=== PATIENT | male | born 1955 | race Caucasian/White ===

== ENCOUNTER 2025-05-06 16:19 | Emergency (ER) | payer MEDICARE, MEDICAID, SELFPAY ==
[2025-05-06] VITALS (21 sets, daily range): BP systolic 128–162; BP diastolic 70–109; PULSE 86–125; RESP 12–28; TEMP 36.4–36.8; O2SAT 92–100; BMI 27.7
--- NOTE | 2025-05-06 16:22 | EDS_ITS ---
HPI History of Present Illness Chief Complaint: Shortness of Breath PFSH PFSH Medical History no medical history Allergy/AdvReac Type Severity Reaction Status Date / Time No Known Allergies Allergy Verified 05/06/25 19:09 Family History no significant family his Surgical History no surgical history Social History Smoking Status: Current every day smoker tobacco type: cigarettes EXAM Physical Exam Const Vital Signs: 05/06/25 16:20 05/06/25 16:24 05/06/25 16:26 Temperature 97.6 F L 97.8 F Temperature Source Oral Oral Pulse Rate 114 H 125 H Respiratory Rate 25 H 28 H Respiratory Effort Labored Accessory Muscle Use Respiratory Depth Shallow Respiratory Pattern Tachypnea Blood Pressure 153/106 H 153/106 H Blood Pressure Mean 121 121 Pulse Ox 98 95 Oxygen Delivery Method Room Air Room Air Oxygen Flow Rate (L/min) Fraction of Inspired Oxygen (FIO2) 05/06/25 17:24 05/06/25 17:38 05/06/25 18:00 Temperature 98 F Temperature Source Axillary Pulse Rate 100 115 H 95 Respiratory Rate 22 H 23 H 26 H Respiratory Effort Respiratory Depth Respiratory Pattern Tachypnea Blood Pressure 128/70 H 162/101 H Blood Pressure Mean 89 121 Pulse Ox 100 98 94 Oxygen Delivery Method Bi-pap Oxygen Flow Rate (L/min) Fraction of Inspired Oxygen (FIO2) 35 05/06/25 18:50 05/06/25 19:08 05/06/25 20:00 Temperature Temperature Source Pulse Rate 113 H Respiratory Rate 22 H 24 H Respiratory Effort Respiratory Depth Respiratory Pattern Blood Pressure 146/107 H Blood Pressure Mean 120 Pulse Ox 95 92 96 Oxygen Delivery Method Nasal Cannula Nasal Cannula Oxygen Flow Rate (L/min) 3 3 Fraction of Inspired Oxygen (FIO2) 05/06/25 21:00 05/06/25 21:18 05/06/25 21:18 Temperature Temperature Source Pulse Rate 106 H 91 Respiratory Rate 22 H 17 Respiratory Effort Respiratory Depth Respiratory Pattern Normal Blood Pressure 150/109 H Blood Pressure Mean 122 Pulse Ox 96 96 96 Oxygen Delivery Method Nasal Cannula Bi-pap Oxygen Flow Rate (L/min) 3 Fraction of Inspired Oxygen (FIO2) 30 30 05/06/25 21:40 05/06/25 21:48 05/06/25 22:00 Temperature Temperature Source Pulse Rate 96 107 H Respiratory Rate 20 H 20 H Respiratory Effort Respiratory Depth Respiratory Pattern Blood Pressure 133/103 H 155/99 H Blood Pressure Mean 113 117 Pulse Ox 95 95 97 Oxygen Delivery Method Bi-pap Nasal Cannula Nasal Cannula Oxygen Flow Rate (L/min) 3 3 Fraction of Inspired Oxygen (FIO2) 05/06/25 22:14 05/06/25 22:28 05/06/25 22:44 Temperature 98.2 F 98.2 F 98.2 F Temperature Source Oral Oral Oral Pulse Rate 95 104 H 98 Respiratory Rate 20 H 20 H 20 H Respiratory Effort Respiratory Depth Respiratory Pattern Blood Pressure 155/99 H 140/106 H 143/88 H Blood Pressure Mean 117 117 106 Pulse Ox 96 98 97 Oxygen Delivery Method Nasal Cannula Nasal Cannula Nasal Cannula Oxygen Flow Rate (L/min) 3 3 3 Fraction of Inspired Oxygen (FIO2) 05/06/25 22:59 05/06/25 23:00 05/06/25 23:14 Temperature 98.2 F 98.2 F Temperature Source Oral Oral Pulse Rate 86 98 95 Respiratory Rate 20 H 20 H 20 H Respiratory Effort Respiratory Depth Respiratory Pattern Blood Pressure 143/88 H 140/88 H 141/84 H Blood Pressure Mean 106 105 103 Pulse Ox 97 97 96 Oxygen Delivery Method Nasal Cannula Nasal Cannula Nasal Cannula Oxygen Flow Rate (L/min) 3 3 2 Fraction of Inspired Oxygen (FIO2) 05/06/25 23:23 Temperature Temperature Source Pulse Rate Respiratory Rate Respiratory Effort Respiratory Depth Respiratory Pattern Blood Pressure Blood Pressure Mean Pulse Ox 95 Oxygen Delivery Method Nasal Cannula Oxygen Flow Rate (L/min) 2 Fraction of Inspired Oxygen (FIO2) MDM MDM MDM Narrative Medical decision making narrative: HISTORY OF PRESENT ILLNESS: Chief complaint: Shortness of breath 69-year-old male with no documented past medical history. States he does not see a doctor as he has broken bone presents with shortness of breath. States he has had shortness of breath for last 6 months but is worse over the last several days. Notes for the last week or so he has had decreased p.o. intake secondary to nausea, dry heaving and diffuse abdominal pain. States he drinks one 4 [place] (malt liquor) daily and has been doing this for years. His last drink was yesterday. He denies leg swelling. Denies focal weakness. Denies any falls. Denies any actual vomiting. States his last bowel movement was unknown. Denies any urinary complaints. He also notes occasional chest pain but denies chest pain at this time. He notes a cough. Denies fever or chills however. Notes his cough is dry nonproductive. The patient denies recent surgery in the last 4 weeks or immobilization in the last 3 days, denies previous diagnosis of DVT or PE, hemoptysis, unilateral leg swelling or malignancy with treatment the last 6 months or palliative. No estrogen use noted. Patient denies sudden onset of pain, no tearing sensation, no migratory symptoms, no new numbness, weakness or loss of sensation. Patient denies family history or personal history of Connective tissue disorders (Marfan's Syndrome, Meg Danlos etc). REVIEW OF SYSTEMS: Pertinent positives: Shortness of breath, abdominal pain, nausea, dry heaving Pertinent negatives: As per HPI PHYSICAL EXAM: Nursing triage notes reviewed, Vital signs reviewed Constitutional: please see mdm HENT: MMM, dry oral mucosa Eyes: Pupils equal round and reactive to light, Extraocular muscles intact Neck: No stridor, no JVD, full neck ROM Lungs: Diminished breath sounds R>L but no obvious wheezing or rales. There was mild conversational dyspnea and slight increased work of breathing but no obvious clay pigeon setter muscle use nasal flaring. Heart: Fast irregular rate, no murmurs gallops rubs. Intact pulses in all 4 extremities. Abdomen: Soft, there is no tenderness, rigidity, rebound or guarding, no obvious peritoneal signs, no palpable pulsatile abdominal masses, no auscultated abdominal bruit : No CVAT Extremities: No edema Neuro: No new focal neurological deficits, cranial nerves II through XII intact, 5/5 strength in all present extremities. Intact sensation to light touch in all present extremities, 2+ reflexes bilateral patella tendons. Skin: No rash or lesions noted MEDICAL DECISION MAKING: Chief Complaint: please see HPI External records reviewed: Reviewed prior cardiovascular testing: No cardiovascular testing noted in [facility] Factors affecting care: No known medical issues Social determinants of health: Tobacco abuse, alcohol abuse History obtained from others: EMS Consults: [facility] Dr. Mccullough [facility] Narrative: Patient was a poor historian did not provide reliable history. The patient was initially hypertensive with a blood pressure 153/106, tachycardic with a pulse of 114, tachypneic with respirate of 25, saturating 98% on room air. He was afebrile with a temperature of 97.6. Patient was slightly conversationally dyspneic. However his lungs were overall clear with no obvious wheezing rales or focal consolidation. I considered the following differential diagnosis: Arrhythmia, anemia, electrolyte disturbance, pneumonia, COPD exacerbation/asthma exacerbation, CHF, Pleural effusion, PE, viral illness, AAA, small bowel obstruction, abdominal perforation, appendicitis, pancreatitis, hepatobiliary pathology (acute cholecystitis), mesenteric ischemia, pathology (ie nephrolithiasis, pyelonephritis). Alcohol withdrawal I obtained a broad lab and imaging workup to further determine if the patient was suffering from a life-threatening etiology. Initially treated the patient with a small 500 cc bolus given his complaint of not eating and nausea, given 4 of IV Zofran as well as 2 mg IV morphine. ALL IMAGES (IF OBTAINED) HAVE BEEN PERSONALLY REVIEWED AND INTERPRETED BY MYSELF. EKG with an irregularly irregular rhythm, no discernible P waves, questionable A-fib, poor baseline, appears to be a normal axis, there is a prolonged QT interval at 519, there is no obvious STEMI Chest x-ray was read and reviewed personally myself shows complete whiteout of the right side of the patient's lungs. Will order CT scan to further investigate once his kidney function is known. Given continued tachypnea, Large pleural effusion and decreased lung capacity at start the patient on rescue BiPAP to decrease work of breathing CBC with no leukocytosis to suggest systemic inflammation, no anemia but elevated hemoglobin suggestive of hemoconcentration, noted mild thrombocytopenia VBG with no CO2 retention, no respiratory acidosis, no signs of metabolic acidosis either. Initial lactate elevated consistent with endorgan hypoperfusion possibly related to history of alcohol abuse and liver dysfunction versus infection. My clinical suspicion is this is the former as patient admits to drinking alcohol daily and his alcohol level here is 312 and his liver function tests are abnormal. This suggests a disrupted cortical D-dimer elevated consistent with increased clot breakdown concern for VTE cannot High-sensitivity troponin is negative, no evidence of myocardial ischemia LFTs elevated consistent with liver dysfunction This may be due to alcohol versus other obstructive etiology. Will await CT scan of the abdomen pelvis BNP within normal limits no sign of heart failure Lipase is wnl indicating no pancreatic inflammation. BMP with no significant electrolyte abnormalities, no sign of metabolic acidosis but there is sign of endorgan perfusion elevated anion gap likely related to lactate elevation, no OSCAR CTA of the chest shows large pleural effusion no obvious mass or pneumonia or PE CT scan of the abdomen pelvis shows duodenitis, peptic ulcer disease but no obvious perforation or obstruction Briefly discussed with her hospitalist here [facility] who noted we do not have IR pulmonology recommended transfer to higher level of care. Will try [facility]. Discussed with [facility] Nurse at 1900 and the transfer center. She we will get a hold of their hospitalist and call me back Discussed with hospitalist at approximately [address] Mccullough excepted patient's case. Will board in ED until bed is available. Patient remains in ED until 2 AM patient will be admitted here until bed is available. Repeat EKG here in the ED showed new onset A-fib with RVR. This was Treated with 5 mg IV metoprolol Repeat lactic showed improvement in lactic acidosis to 3.8 from 4.7 The patient and/or family, caregivers express understanding. The patient and/or family, caregivers agrees with the plan. Shared decision making: I will have a discussion with the patient and or visitors regarding risk/benefits of further testing or admission. They will be made aware of of the risk/benefits inherent in this decision they will be given the opportunity to voice understanding. Total critical care time today provided was at least 60 minutes. This excludes separately billable procedures. Critical care time (if documented) is secondary to the patient having high probability of clinically significant/life threatening deterioration in the patient's condition which required my urgent intervention. Impression: 1. Dyspnea 2. Pleural Effusion 3. Acute respiratory failure 4. Elevated liver enzymes 5. Acute alcohol intoxication 6. Hyperbilirubinemia 7. Elevated liver enzymes Dispo: Transfer to [facility] This note was generated with [employer] dictation software. It may contain incorrect words, spelling, and punctuation that were not noted in review of the chart prior to signing. Lab Data Labs: Laboratory Results - last 24 hr 05/06/25 05/06/25 05/06/25 16:30 19:15 20:10 WBC 4.2 L RBC 5.72 Hgb 17.8 H Hct 52.6 MCV 92.0 MCH 31.1 MCHC 33.8 RDW Std Deviation 51.5 H RDW Coeff of Marj 15.9 H Plt Count 130 L MPV 9.5 Immature Gran % (Auto) 0.700 Neut % (Auto) 71.8 H Lymph % (Auto) 16.7 L Cottle % (Auto) 10.3 H Eos % (Auto) 0.0 Baso % (Auto) 0.5 Absolute Neuts (auto) 3.0 Absolute Lymphs (auto) 0.70 L Nucleated RBC % 0 D-Dimer Quant (PE/DVT) 2.21 H* Sodium 140 Potassium 3.5 Chloride 96 L Carbon Dioxide 25.9 Anion Gap 19 H BUN 4 Creatinine 0.68 L Estim Creat Clear Calc 95.68 Est GFR (MDRD) Non-Af 101 BUN/Creatinine Ratio 5.4 L Glucose 113 H Lactic Acid 4.7 H* 3.8 H* Calcium 8.9 Total Bilirubin 2.16 H Direct Bilirubin 1.41 H AST 69 H ALT 48 H Alkaline Phosphatase 166 H Troponin T High Sens 28 H Troponin T Hi Sens 2 Hr 27 H Troponin T Hi Sens 4Hr NT pro BNP II 639 Total Protein 7.2 Albumin 4.4 Globulin 2.8 Lipase 30 Ethyl Alcohol 312.0 H* 05/06/25 20:30 WBC RBC Hgb Hct MCV MCH MCHC RDW Std Deviation RDW Coeff of Marj Plt Count MPV Immature Gran % (Auto) Neut % (Auto) Lymph % (Auto) Cottle % (Auto) Eos % (Auto) Baso % (Auto) Absolute Neuts (auto) Absolute Lymphs (auto) Nucleated RBC % D-Dimer Quant (PE/DVT) Sodium Potassium Chloride Carbon Dioxide Anion Gap BUN Creatinine Estim Creat Clear Calc Est GFR (MDRD) Non-Af BUN/Creatinine Ratio Glucose Lactic Acid Calcium Total Bilirubin Direct Bilirubin AST ALT Alkaline Phosphatase Troponin T High Sens Troponin T Hi Sens 2 Hr Troponin T Hi Sens 4Hr 29 H NT pro BNP II Total Protein Albumin Globulin Lipase Ethyl Alcohol ABG Data ABG results: ABG 05/06/25 16:56 Specimen Type JUAN Sample Site Not entered VBG pH 7.48 H VBG pO2 38 VBG HCO3 31 H VBG Total CO2 33 VBG O2 Sat (Calc) 76 H VBG Base Excess 8 H POC Mix VBG pCO2 Pt Tmp 42.0 O2 Delivery Device Not entered Radiography Diagnostic Testing: Clinical Impression(s) from Imaging Studies Chest X-Ray 05/06/25 16:50 IMPRESSION: Right hemithorax opacification. Question some volume loss. Differential diagnosis include central endobronchial obstruction such as from mucous plugging versus large effusion. Recommend CT. No prior studies. Reading Location: [facility] Abdomen/Pelvis CT 05/06/25 17:20 IMPRESSION: Possible duodenitis or peptic ulcer disease without perforation or abscess Reading Location: [facility] Chest CTA 05/06/25 17:20 IMPRESSION: Right hemithorax opacification is produced by a very large pleural effusion. The left lung is clear Reading Location: [facility] Discharge Plan Triage Chief Complaint: Shortness of Breath ED Provider: Alberto Eller Dx/Rx/DC Orders Primary Care Provider: Care Physician,No Primary Referrals: Care Physician,No Primary [Primary Care Provider] - Print Language: Kosovan
--- NOTE | 2025-05-06 16:31 | EKG12_ITS ---
Test Reason : SOB Blood Pressure : */* mmHG Vent. Rate : 109 BPM Atrial Rate : * BPM P-R Int : * ms QRS Dur : 102 ms QT Int : 386 ms P-R-T Axes : * 109 254 degrees QTcB Int : 519 ms Probable Atrial fibrillation with rapid ventricular response Low voltage QRS Abnormal ECG Baseline artifact Confirmed by Eric Kaiser ([id number]), editor city AFSANEH PRINCE ([id number]) on 05/07/2025 9:59:52 AM Referred By: Confirmed By: Eric Kaiser
--- NOTE | 2025-05-06 16:50 | RAD_ITS ---
PROCEDURE: CHEST 1 VIEW (PORTABLE) 05/06/2025 REASON FOR EXAM: SHORTNESS OF BREATH TECHNIQUE: Frontal view of the chest. FINDINGS: Single view demonstrates complete opacification of the right hemithorax. The left lung is clear. RAD/Chest 1 View (Portable) IMPRESSION: Right hemithorax opacification. Question some volume loss. Differential diagn osis include central endobronchial obstruction such as from mucous plugging versus large effusion. Recommend CT. No prior st udies. Reading [facility]
[2025-05-06 16:52] LABS: Hematocrit 52.6 % (40-54); Hemoglobin 17.8 g/dL (13.0-16.5); Immature Granulocytes Count 0.030 X10^3/uL (0.0-0.0); Mean Corp Hgb Conc 33.8 g/dL (32-36); Mean Corpuscular Volume 92.0 fL (80-94); Mean Platelet Vol. 9.5 fl (6.2-12.0); NRBC Flagged by Analyzer 0 % (0-5); Platelet Count 130 K/mm3 (150-450); RBC Distribution Width CV 15.9 % (11.6-14.6); RBC Distribution Width SD 51.5 fl (35.1-43.9); Red Blood Count 5.72 M/mm3 (4.6-6.2); White Blood Count 4.2 K/mm3 (4.4-11.0)
[2025-05-06 16:59] LABS: SITE Not entered; VBG BASE EXCESS 8 mmol/L (-1.0-3.5); VBG PO2 38 mmHg (25-40); VBG SO2 76 % (50-70); VBG TCO2 33 mmol/L (23-33)
[2025-05-06 17:13] LABS: AST(SGOT) 69 U/L (<=37); Alanine Aminotransfer ALT/SGPT 48 U/L (<=46); Albumin, Serum 4.4 g/dL (3.4-4.8); Alkaline Phosphatase 166 U/L (40-129); Anion Gap 19 (5-15); BUN 4 mg/dL (4-19); BUN/Creat Ratio 5.4 RATIO (10-20); Bilirubin, Direct 1.41 mg/dL (0.00-0.30); Calcium,Total 8.9 mg/dL (7.6-11.0); Carbon Dioxide 25.9 mmol/L (21.0-32.0); Chloride 96 mmol/L (98-108); Estimated Creatinine Clearance 95.68 ml/min (50-250); Globulin 2.8 g/dL (2.2-4.2); Glucose 113 mg/dL (70-99); Lipase 30 U/L (13-75); Potassium 3.5 mmol/L (3.3-5.1); Pro- Brain NATRIURETIC PEPTIDE 639 pg/mL (<=900)
--- NOTE | 2025-05-06 17:20 | CT_ITS ---
PROCEDURE: ABDOMEN/PELVIS W IV CONT ONLY 05/06/2025 REASON FOR EXAM: ABDOMINAL PAIN TECHNIQUE: Procedure Code: [id number] Modality: CT Procedure: ABDOMEN/PELVIS W IV CONT ONLY Coronal and Sagittal reconstruction series were provided. CONTRAST: Isovue 370 VOLUME: 100 mL One or more dose reduction techniques were used (e.g., Automated exposure control, adjustment of the mA and/or kV according to patient size, use of iterative reconstruction technique. RADIATION DOSE SUMMARY: CTDlvol: 45 mGy DLP: 1803 mGycm FINDINGS: Complete opacification right hemithorax secondary to large amount of pleural fluid with central atelectasis. Normal liver. Normal gallbladder. Normal kidneys. Normal pancreas. Infiltration of the fat around the 2nd portion of the duodenum compatible with duodenitis or peptic ulcer disease. No obstruction. No free air or free fluid. CT/Abdomen/Pelvis W IV Cont ONLY IMPRESSION: Possible duodenitis or peptic ulcer disease without perforation or abscess Reading [facility]
--- NOTE | 2025-05-06 17:20 | CT_ITS ---
PROCEDURE: CTA CHEST W/WO CONTRAST 05/06/2025 REASON FOR EXAM: SOB TECHNIQUE: Procedure Code: [id number] Modality: CT Procedure: CTA CHEST W/WO CONTRAST Multiplanar Sagittal and Coronal images were obtained. 3D reconstructions CONTRAST: Isovue 370 VOLUME: 100 mL One or more dose reduction techniques were used (e.g., Automated exposure control, adjustment of the mA and/or kV according to patient size, use of iterative reconstruction technique). RADIATION DOSE SUMMARY: CTDlvol: 56 mGy DLP: 1803 mGycm FINDINGS: Complete opacification of the right hemithorax secondary to what appears to be a very large pleural effusion. Normal axilla. Moderate enlargement of the left lobe of the thyroid gland which extends substernally. There is narrowing and obstruction of the right mainstem bronchus from central atelectasis. No endobronchial mass lesions are identified. No thoracic aneurysm. No thoracic dissection. No significant pericardial effusion. No visible pulmonary emboli. Upper abdomen unremarkable. CT/CTA Chest W/WO Contrast IMPRESSION: Right hemithorax opacification is produced by a very large pleural effusion. T he left lung is clear Reading [facility]
[2025-05-06 17:27] LABS: D-Dimer Quantitative (DVT/PE) 2.21 FEU/ug/m (0.27-0.49); Troponin T High Sensitivity 28 ng/L (<=22)
[2025-05-06 17:29] LABS: Alcohol, Blood (Medical)-Serum 312.0 mg/dL (<=10.0)
--- NOTE | 2025-05-06 17:30 | ED.RN ---
Critical D dimer of 2.21 and serum alcohol of [address] Eller notified.
--- NOTE | 2025-05-06 17:39 | CPS ---
placed patient on bipap per Dr Eller. This HAT BLOCKING OPERATOR voices concern to Dr Eller on placing patient on bipap. Per the chest xray, patients right lung is ritika out and a slight tracheal shift. This HAT BLOCKING OPERATOR voices concern for contraindications based off the chest xray and symptoms. Patients VBG is within normal limits. and oxygenation is 97% on RA at time of placing patient on bipap. Patient came into the ER stating i feel like something is stuck in my throat and i cant get it up also another concern for placing the patient on bipap. After talking to Dr Eller, he still waned the bipap place for patient comfort and work of breathing.
--- NOTE | 2025-05-06 17:48 | ED.RN ---
PER DR. CRUZ, HOLD IV FLUIDS DUE TO PLEURAL EFFUSION
--- NOTE | 2025-05-06 18:42 | ED.RN ---
Update given to friend Genny, pt verbalized that he was ok that I spoke with friend and gave them and update.
[2025-05-06 19:48] LABS: Troponin T High Sens 2 HR 27 ng/L (<=22)
[2025-05-06] MEDS: 0.9% Normal Saline (1000mL) 1,000 ML 999 ML IV (20:22)
--- NOTE | 2025-05-06 20:35 | EKG12_ITS ---
Test Reason : DYSRHYTHMIA Blood Pressure : */* mmHG Vent. Rate : 109 BPM Atrial Rate : * BPM P-R Int : * ms QRS Dur : 94 ms QT Int : 376 ms P-R-T Axes : * 94 102 degrees QTcB Int : 506 ms Critical Test Result: Arrhythmia Atrial fibrillation with rapid ventricular response with premature ventricular or aberrantly conducted complexes Rightward axis Low voltage QRS Nonspecific ST and T wave abnormality Prolonged QT Abnormal ECG Confirmed by Eric Kaiser ([id number]), rewrite editor AFSANEH PRINCE ([id number]) on 05/07/2025 9:53:37 AM Referred By: Confirmed By: Eric Kaiser
[2025-05-06 20:44] LABS: Reflex Lactate? Y
[2025-05-06 21:07] LABS: Troponin T High Sens 4 HR 29 ng/L (<=22)
--- NOTE | 2025-05-06 21:17 | ED.RN ---
Pt currently on 3 L of oxygen via nasal cannula. Pt expressed to this RN that he would like to be placed back on BiPap. Dr. Eller and respiratory notified. BiPap placed per pt request.
--- NOTE | 2025-05-06 21:24 | CPS ---
[2118] BiPAP placed back on pt. per pt.'s request. Minimal settings (8/4) used at this time to mitigate risk of possible pneumothorax or other lung injuries due to large right-sided pleural effusion.
[2025-05-06] MEDS: Famotidine 200 MG/20 ML MDV 20 MG in 0.9% Normal Saline (Pres. free 8 ML 300 MG IV (22:12)
--- NOTE | 2025-05-06 22:18 | PCA ---
PT ACCEPTED AT [facility] RM [id number] [phone] LOCAL TRANSPORT CALLED
[2025-05-07] VITALS: BP 121/84; PULSE 100; RESP 20; O2SAT 94
== END 2025-05-07 00:38 | disposition short-term general hospital (02) ==
PROVIDERS: Emergency Provider Emergency Medicine; Visit Provider Emergency Medicine
DX: J96.00 Acute respiratory failure, unspecified whether with hypoxia or hypercapnia (principal); I48.91 Unspecified atrial fibrillation; F10.129 Alcohol abuse with intoxication, unspecified; J90 Pleural effusion, not elsewhere classified; R74.8 Abnormal levels of other serum enzymes; E80.7 Disorder of bilirubin metabolism, unspecified; F17.210 Nicotine dependence, cigarettes, uncomplicated; D69.6 Thrombocytopenia, unspecified; E87.20 Acidosis, unspecified
CPT/HCPCS: 71045; 71275; 74177; 80048; 80076; 82077; 82803; 83605; 83690; 83880; 84484; 85025; 85379; 87040; 87631; 93005; 94002; 96361; 96374; 96375; 96376; 99285; Q9967; A4216; J2405